=== PATIENT | female | born 1970 | race Caucasian/White ===

== ENCOUNTER 2017-10-23 14:17 | Emergency (ER) | payer MEDICAID ==
[~2017-10-23 14:17] MED LIST: ACET-3017 PO; ALBU8.5H IH; BACDS FT; CALCIUM PO; CLO1 PO; CYC10 PO; DESV50 PO; DIAZ-308 PO; HYDR-3250 FT; HYDR-6016 PO; IBU200 PO; IBU800 PO; IBUP600T22 PO; LOR5/325 PO; MED10 PO; MEDR10TA65 PO; NAP250 PO; NEBULIZER IH; NOR5/325 PO; OMEP40CA79 PO; OND4 PO; ONDA4TAB PO; PER PO; TRAZ-156 PO
--- NOTE | 2017-10-23 14:19 | ER Report ---
History and Physical Time Seen By MD: 14:18 HPI/ROS CHIEF COMPLAINT: left hip pain HISTORY OF PRESENT ILLNESS: Patient is a 47-year-old female here visiting from [place] who presents with complaint of left-sided hip pain and subluxation that is been going on for quite some time but worse over the past 2-3 days. Patient states she has painful sleeping has to hold the hip in a flexed position. Ambulation is uncomfortable. Pain is currently 8 out of 10 in intensity. The hip does not completely dislocated and has no history of dislocation but she does have a fall approximately a year ago that has caused some discomfort. She denies any saddle anesthesia or loss of bladder or bowel function. Patient is scheduled for an MRI this Thursday back in her hometown but because the pain was severe she presents to the emergency department for further evaluation. REVIEW OF SYSTEMS: Respiratory: No cough, no dyspnea. Cardiovascular: No chest pain, no palpitations. Gastrointestinal: No vomiting, no abdominal pain. Musculoskeletal: No back pain. Left hip pain Allergies: Coded Allergies: BEE STINGS (Verified Allergy, Severe, BREAK OUT, BODY GOES INTO SHOCKS, ) Penicillins (Verified Allergy, Intermediate, DIFFICULTY BREATHING, 10/23/17 ) aspirin (Verified Allergy, Mild, STOMACH UPSET, 10/23/17) hydromorphone HCl (Unverified Allergy, Mild, ITCHING, 10/23/17) Home Meds Active Scripts Hydrocodone Bit/Acetaminophen (HYDROCODON-ACETAMINOPHEN 5-325) 1 Each Tablet, 1- 2 EACH PO Q4-6H for PAIN, #20 TAB 0 Refills Prov:YUDELKA SHAHID MD 10/23/17 Reported Medications Tizanidine Hcl (TIZANIDINE HCL) 2 Mg Capsule, 2 MG PO TID, CAPSULE 10/23/17 Ibuprofen (IBUPROFEN) 600 Mg Tablet, 1 TAB PO Q6H PRN, PAIN, #30 12/22/12 [Nebulizer] No Conflict Check, IH PRN 12/16/12 Albuterol Sulfate 90 Mcg/Act (PROAIR HFA 90 MCG/ACT) 8.5 Gm Hfa.aer.ad, 1 - 2 PUFF IH 3-4XD Y 12/16/12 Acetaminophen With Codeine # 3 (TYLENOL WITH CODEINE #3 TABLET) 1 Each Tablet, 1 EACH PO PRN MIGRAINE 12/16/12 [Calcium] No Conflict Check, PO DAILY 12/16/12 Diazepam (DIAZEPAM) 5 Mg Tablet, 5 MG PO TID 12/16/12 Trazodone Hcl (TRAZODONE HCL) 50 Mg Tablet, 2 TAB PO QHS 12/16/12 Desvenlafaxine Succinate (PRISTIQ 50 MG) 50 Mg Tabsr, 50 MG PO QDAY, 0 Refills 11/29/11 Discontinued Reported Medications Hydrocodone Bit/Acetaminophen 7.5/300 (HYDROCODON-ACETAMINOPH 7.5-300) 1 Each Tablet, 1 EACH PO Q6H PRN, PAIN, #30 TAKE ONE TABLET BY MOUTH EVERY 6 HOURS WHEN NEEDED FOR PAIN. 12/22/12 Past Medical/Surgical History Left hip pain Hx Smoking: Yes (1 PPD) Exposure to Second Hand Smoke?: Yes Hx Substance Use Disorder: No Hx Alcohol Use: Yes Constitutional Vital Sign - Last 24 Hours 10/23/17 14:20 Temp 97.5 Pulse 69 Resp 20 B/P (MAP) 118/72 Pulse Ox 95 O2 Delivery Room Air Physical Exam General appearance: Alert no distress. Respiratory: Chest is non tender, lungs are clear to auscultation. Cardiac: Regular rate and rhythm [ ] Musculoskeletal: Patient has an antalgic gait favoring the left hip. She has no overlying erythema or rash to the affected area. She does have some painful active and passive internal and external rotation about the hip there is no clicking or popping felt. Medical Decision Making ED Course/Re-evaluation ED Course Since patient is a prior x-rays and is scheduled for an MRI no imaging will be done at this time we will treat the patient empirically for pain and have her follow-up with her orthopedic evaluation and MRI next week. Will provide short course of PO pain meds; will also give ABductor pillow for sleep at night Decision to Disposition Date: October 23, 2017 Decision to Disposition Time: 14:46 Depart Departure Latest Vital Signs Vital Signs Date Time Temp Pulse Resp B/P (MAP) Pulse Ox O2 Delivery O2 Flow Rate FiO2 10/23/17 14:20 97.5 69 20 118/72 95 Room Air Impression: Primary Impression: Hip pain Condition: Improved Disposition: HOME OR SELF-CARE New Scripts Hydrocodone Bit/Acetaminophen (HYDROCODON-ACETAMINOPHEN 5-325) 1 Each Tablet 1-2 EACH PO Q4-6H for PAIN, #20 TAB 0 Refills Prov: YUDELKA SHAHID MD 10/23/17 Patient Instructions: Hip Pain (ED) Additional Instructions: Follow-up as scheduled on Thursday for your MRI. Problem Qualifiers Primary Impression: Hip pain Laterality: left Qualified Codes: M25.552 - Pain in left hip YUDELKA SHAHID MD October 23, 2017 14:19
[2017-10-23 14:20] VITALS: BP 118/72
[2017-10-23] MEDS ORDERED: TIZA2CAP3 PO (14:26)
[2017-10-23] MEDS ORDERED: HYDR-385 PO (14:41)
== END 2017-10-23 15:05 | disposition home or self-care (01) ==
LOC: ER 14:18
DX: M25.552 Pain in left hip (principal)
CPT/HCPCS: 99281

== ENCOUNTER 2018-11-08 14:09 | Emergency (ER) | payer MEDICAID ==
[~2018-11-08 14:09] MED LIST changes: +HYDR-385 PO; +TIZA2CAP3 PO; -TRAZ-156 PO; +TRAZ50TA52 PO
--- NOTE | 2018-11-08 14:10 | ER Report ---
History and Physical Time Seen By MD: 14:10 HPI/ROS CHIEF COMPLAINT: Left hand injury HISTORY OF PRESENT ILLNESS: Patient is a 48-year-old female who presents to the emergency department with complaint of blunt trauma to her nondominant left hand. This injury reportedly occurred yesterday. She states that she and her were moving some furniture when he lost para machine operator of a cabinet and it landed on the ends of her 4th and 3rd digits of her left hand. She is complaining of pain specifically to the 4th finger although she does have some pain to the 3rd as well. She states she's been trying Advil and Tylenol along with denies again at home for pain relief without systemic relief. She lives in [place] but decided to come to the [facility] because "we don't have a hand surgeon in [place]". Allergies: Coded Allergies: BEE STINGS (Verified Allergy, Severe, BREAK OUT, BODY GOES INTO SHOCKS, 11/08/18) Penicillins (Verified Allergy, Intermediate, DIFFICULTY BREATHING, 11/08/18) aspirin (Verified Allergy, Mild, STOMACH UPSET, 11/08/18) hydromorphone HCl (Unverified Allergy, Mild, ITCHING, 11/08/18) Home Meds Active Scripts Naproxen (NAPROSYN) 500 Mg Tablet, 500 MG PO Q12H PRN for PAIN, #20 TAB 0 Refills Prov:YUDELKA SHAHID MD 11/08/18 Hydrocodone Bit/Acetaminophen (HYDROCODON-ACETAMINOPHEN 5-325) 1 Each Tablet, 1- 2 EACH PO Q4-6H for PAIN, #20 TAB 0 Refills Prov:YUDELKA SHAHID MD 10/23/17 Reported Medications Gabapentin (GABAPENTIN) 100 Mg Capsule, 100 MG PO TID, CAPSULE 11/08/18 Tizanidine Hcl (TIZANIDINE HCL) 2 Mg Capsule, 2 MG PO TID, CAPSULE 10/23/17 Ibuprofen (IBUPROFEN) 600 Mg Tablet, 1 TAB PO Q6H PRN, PAIN, #30 12/22/12 Albuterol Sulfate 90 Mcg/Act (PROAIR HFA 90 MCG/ACT) 8.5 Gm Hfa.aer.ad, 1 - 2 PUFF IH 3-4XD PRN 12/16/12 Acetaminophen With Codeine # 3 (TYLENOL WITH CODEINE #3 TABLET) 1 Each Tablet, 1 EACH PO PRN MIGRAINE 12/16/12 Diazepam (DIAZEPAM) 5 Mg Tablet, 5 MG PO TID 12/16/12 Trazodone Hcl (TRAZODONE HCL) 50 Mg Tablet, 2 TAB PO QHS 12/16/12 Desvenlafaxine Succinate (PRISTIQ 50 MG) 50 Mg Tabsr, 50 MG PO QDAY, 0 Refills 11/29/11 Discontinued Reported Medications [Nebulizer] No Conflict Check, IH PRN 12/16/12 [Calcium] No Conflict Check, PO DAILY 12/16/12 Past Medical/Surgical History History of chronic back and hip pain. Hx Smoking: Yes (1 PPD) Exposure to Second Hand Smoke?: Yes Hx Substance Use Disorder: No Hx Alcohol Use: No Constitutional Vital Sign - Last 24 Hours 11/08/18 14:12 Temp 98.3 Pulse 80 Resp 20 B/P (MAP) 152/91 Pulse Ox 99 O2 Delivery Room Air Physical Exam Examination of the Left hand reveals no acute deformity. The patient is able to give a thumbs up sign, is able to make an okay sign, and is able to AB duct the fingers. Sensation is intact over the dorsal 1st web space, the volar aspect of the 2nd finger, and the volar aspect of the 5th finger. Capillary refill is brisk. There is no pain to the snuffbox area and no proximal pain to the wrist or forearm Medical Decision Making EKG/Imaging Imaging X-ray negative for acute fracture ED Course/Re-evaluation ED Course 11/08/2018 2:20:11 pm review of the electronic medical record for this patient was reviewed. Patient was seen by myself on October 26 with complaint of left hip pain and she was scheduled to have an outpatient MRI done but states that she did not follow-up secondary to Medicaid insurance reasons. At that time I prescribed 12 5/325 mg hydrocodone tablets for symptomatic relief of pain. Review of the [place] controlled substance website was reviewed. The patient has prescriptions for hydrocodone that were dispensed on October 18, 2018, 5/325 strength with 12 tablets dispensed, she was also dispensed 30 Tylenol 3 on September 25, 2018, a prescription for 60 Tylenol 3 tablets were dispensed on 08/30/2018; 60 Tylenol 3 tablets were also dispensed on 06/24/2018; 10 Tylenol 3 tablets were dispensed on 06/02/2018. I do have some concerns about possible opiate seeking this patient given the fact that she resides in [place] and appears to get most of her medical care there; yet drove approximately 90 minutes to obtain medical care here. No obvious deformity to the hand or fingers and no obvious bruising noted. I we will x-ray the left hand and provide appropriate immobilization with baseball splint and treat with nonsteroidal pain medications. This time will be finger splint to the 4th finger with yoav taping to the 3rd we will prescribe naproxen, 500 mg tablets twice a day for the next 10 days. Tums persist greater than 14 days patient was instructed to follow with Dr. Virgen at [facility] Decision to Disposition Date: Nov 08, 2018 Decision to Disposition Time: 15:00 Depart Departure Latest Vital Signs Vital Signs Date Time Temp Pulse Resp B/P (MAP) Pulse Ox O2 Delivery O2 Flow Rate FiO2 11/08/18 14:12 98.3 80 20 152/91 99 Room Air Impression: Primary Impression: Finger contusion Condition: Improved Disposition: HOME OR SELF-CARE Referrals: [facility] (PCP) DM VIRGEN MD 2 Weeks if your pain persists. New Scripts Naproxen (NAPROSYN) 500 Mg Tablet 500 MG PO Q12H PRN for PAIN, #20 TAB 0 Refills Prov: YUDELKA SHAHID MD 11/08/18 Patient Instructions: Finger Sprain (ED) Additional Instructions: Where your finger splint for the next 2-3 days and then you may discontinue and perform gentle range of motion. If pain persists after 14 days you should follow-up with a hand surgeon as indicated in your discharge instructions Problem Qualifiers Primary Impression: Finger contusion Encounter type: initial encounter Finger: ring finger Damage to nail status: without damage Laterality: left Qualified Codes: S60.042A - Contusion of left ring finger without damage to nail, initial encounter YUDELKA SHAHID MD Nov 08, 2018 14:10
[2018-11-08 14:12] VITALS: BP 152/91
[2018-11-08] MEDS ORDERED: GABA-547 PO (14:15)
[2018-11-08] MEDS ORDERED: NAPROXEN 500 MG TAB PO ONE (14:20)
[2018-11-08] MEDS ORDERED: NAPR500T75 PO (14:33)
--- NOTE | 2018-11-08 14:57 | RADIOLOGY IMAGING REPORT ---
FACILITY: [facility] PATIENT NAME: Estelita Russell : 1970 MR: [id number] V: [id number] EXAM DATE: ORDERING PHYSICIAN: YUDELKA SHAHID TECHNOLOGIST: Location: [facility] [place] Patient: Estelita Russell : 1970 Visit/Account:[id number] Date of Sevice: 11/08/2018 Exam type: HAND COMPLETE LEFT History: trauma, previous history of surgery on the left hand Comparison: None. Findings: There are old appearing fractures through the proximal phalanges of the left fourth and fifth fingers and possibly the third finger as well. There is a mottled appearance to the trabecular pattern of t he distal metaphysis and epiphysis of the left radius which may be related to prior trauma. Clinical correlation needed. No gross evidence of acute fracture dislocation at this time IMPRESSION: 1. No gross evidence of acute fracture-dislocation involving the left hand. There are old appearing fractures the proximal phalanges of the left fourth and fifth finger and poss ibly the left third finger as well. Mottled appearance to the trabecular pattern of the distal metaphysis and epiphysis of the left radiu s may be related to prior trauma Report Dictated By: Rani Avery MD at 11/08/2018 2:40 PM Report E-Signed By: Rani Avery MD at 11/08/2018 2:52 PM WSN:[email or web address]
== END 2018-11-08 15:02 | disposition home or self-care (01) ==
LOC: ER 14:14
DX: S60.042A Contusion of left ring finger without damage to nail, initial encounter (principal)
CPT/HCPCS: 99283